=== PATIENT | male | born 1985 | race Caucasian/White ===

== ENCOUNTER 2016-11-04 12:18 | Emergency (ER) | payer MEDICAID ==
--- NOTE | ~2016-11-04 | ER ---
PATIENT'S NAME: PEPE ANDERSON [facility] AGE: 31 Y [address] ROOM: [place] [address] LOCATION: ED ADMIT DATE: 11/04/2016 ER/Outpatient Report DISCHARGE DATE: 11/04/2016 FAMILY PHYSICIAN: Jesusita Cueva MD ATTENDING PHYSICIAN: Srini Méndez Time of Arrival: 1318 hours. Time of Evaluation: 1330 hours. CHIEF COMPLAINT: Neck or back pain. HISTORY OF PRESENT ILLNESS: The patient was recently seen by Dr. Cueva. He was told he has scoliosis and a possible fracture in his neck. He was started on Flexeril and to do Tylenol or ibuprofen as needed. He is scheduled to start physical therapy on Sunday. He comes to the ER today because his pain in his neck is worsening, not controlled with Tylenol or the muscle relaxants. He presents to the ER with his mother. He denies any new injury to his neck. States he did have a traumatic brain injury as the and has right-sided paralysis. He does not feel as though that has changed in any way. ALLERGIES: NO KNOWN ALLERGIES. CURRENT MEDICATIONS: On his chart and reviewed by me. PAST MEDICAL HISTORY: Scoliosis and traumatic brain injury with right-sided paralysis. SOCIAL HISTORY: Does smoke a pack per day. Denies use of drugs or alcohol. REVIEW OF SYSTEMS: All negative other than those mentioned in the HPI. PHYSICAL EXAMINATION: VITAL SIGNS: He weighed 58.1 kg, blood pressure is 130/81, pulse is 69, respirations 16, temperature of 98.2, and O2 saturation is 100% on room air. GENERAL: He is awake, alert, and oriented x4. SKIN: [place], warm, and dry. RESPIRATIONS: Even and nonlabored. Lung sounds are clear throughout. HEART: Regular rate and rhythm. NECK: He is tender to palpate along the posterior neck area. PATIENT'S NAME: PEPE ANDERSON [facility] AGE: 31 Y [address] ROOM: [place] [address] LOCATION: ED ADMIT DATE: 11/04/2016 ER/Outpatient Report DISCHARGE DATE: 11/04/2016 FAMILY PHYSICIAN: Jesusita Cueva MD ATTENDING PHYSICIAN: Srini Méndez EMERGENCY DEPARTMENT COURSE: The patient was given [place] 5/325 x2 tablets. LABORATORY DATA AND X-RAYS: CT of the C-spine was completed, no fractures noted per radiologist, does have some scoliosis. IMPRESSION: Neck pain. PLAN: Home. Rest. Prescription was written for [place] for pain. He is to do physical therapy as scheduled and follow up with Dr. Cueva in the next 2 to 3 days if symptoms do not improve or he is welcome to return to the ER. He and his mother verbalized understanding. DOMENIC TUCKER APRN FOR [facility]/modl /[id number] d: 11/05/16 0120 t: 11/22/16 0902, OUTPATIENT REPORT
[2016-12-29] MEDS ORDERED: DESYREL150 MG PO (22:01)
[2016-12-29] MEDS ORDERED: KLONOPIN1 MG PO (22:02)
[2016-12-29] MEDS ORDERED: FLEXERIL10 MG PO (22:03)
[2017-01-01] MEDS ORDERED: SEROQUEL50 MG PO (11:49)
== END 2016-11-04 14:42 | disposition disaster alternative care site (69) ==
LOC: GMED 12:18
DX: M54.2 Cervicalgia (principal); F17.210 Nicotine dependence, cigarettes, uncomplicated; Z87.820 Personal history of traumatic brain injury; Z87.39 Personal history of other diseases of the musculoskeletal system and connective tissue; Z79.899 Other long term (current) drug therapy